=== PATIENT | female | born 1960 | race Two or more races ===

== ENCOUNTER 2023-04-02 10:33 | Emergency (ER) | payer OTHER, MEDICAID ==
[~2023-04-02] VITALS: Ht 160 cm; Wt 102.3 kg
[2023-04-02] MEDS ORDERED: SODIUM CHLORIDE 0.9% 1,000 ML IV ONE (15:30)
[2023-04-02] MEDS ORDERED: KETOROLAC TROMETH 30 MG/ML 1ML VIAL IM ONE (15:30)
[2023-04-02] MEDS ORDERED: diphenhdrAMINE HCL 50 MG/1 ML VL IV ONE (15:30)
[2023-04-02] MEDS ORDERED: PROCHLORPERAZINE EDISYLATE 5 MG/ML 2ML VIAL IV ONE (15:30)
[2023-04-02 15:39] VITALS: BP 108/79; PULSE 101; RESP 18; TEMP 98.4; O2SAT 99
[2023-04-02] MEDS ORDERED: DexAMETHasone SOD PHOS 10MG/1ML VIAL INJ IV ONE (17:00)
== END 2023-04-02 17:16 | disposition home or self-care (01) ==
LOC: ER 10:33
DX: G43.909 Migraine, unspecified, not intractable, without status migrainosus (principal)
CPT/HCPCS: 96361; 96372; 96374; 96375; 99284; J0780; J1100; J1200; J1885; J7030

== ENCOUNTER 2023-09-25 10:01 | Emergency (ER) | payer OTHER, MEDICAID ==
[~2023-09-25] VITALS: Ht 160 cm; Wt 107.4 kg
[2023-09-25 11:04] VITALS: BP 122/82; PULSE 110; RESP 18; TEMP 98; O2SAT 95
[2023-09-25] MEDS ORDERED: NABU-72 PO (12:35)
[2023-09-25] MEDS: HYDROcodone-ACET 5/325MG TAB PO ONE (12:35)
== END 2023-09-25 12:41 | disposition home or self-care (01) ==
LOC: ER 10:01
DX: M75.42 Impingement syndrome of left shoulder (principal); M25.572 Pain in left ankle and joints of left foot; M25.512 Pain in left shoulder
CPT/HCPCS: 73030; 73610

== ENCOUNTER 2023-11-17 08:32 | Emergency (ER) | payer OTHER, MEDICAID ==
[~2023-11-17] VITALS: Ht 160 cm; Wt 106.0 kg
[~2023-11-17 08:32] MED LIST: NABU-72 PO
[2023-11-17 09:11] VITALS: BP 106/64; PULSE 110; RESP 18; TEMP 98.5; O2SAT 95
[2023-11-17] MEDS ORDERED: IBUP1TAB5 PO (10:44)
[2023-11-17] MEDS ORDERED: MISC-226 XX (10:52)
== END 2023-11-17 11:02 | disposition home or self-care (01) ==
LOC: ER 08:32
DX: M79.672 Pain in left foot (principal)
CPT/HCPCS: 73630